=== PATIENT | female | born 1990 | race Caucasian/White ===

== ENCOUNTER 2016-10-18 10:35 | Emergency (ER) | payer BC ==
[~2016-10-18] VITALS: Ht 170.2 cm; Wt 67.9 kg
[2016-10-18 11:21] LABS: HEMATOCRIT 43.3 % (36.0-46.0); MCHC 33.9 G/DL (30.0-36.0); MCV 88.4 FL (83-99); MEAN PLAT.VOLUME 9.9 uM^3 (9.5-12.4); PLATELET COUNT 181 K/uL (156-360); RBC DIS.WIDTH-CV 11.8 % (11.8-14.6); RBC DIS.WIDTH-SD 37.9 % (39-53); WHITE BLOOD COUNT 18.1 K/uL (4.1-10.2)
[2016-10-18] MEDS ORDERED: SOLIQUA 100 UNIT3 ML SC (11:26)
[2016-10-18] MEDS ORDERED: HUMALOG100 UNIT/1 SC (11:27)
[2016-10-18 11:29] LABS: CHLORIDE 98 mEq/L (99-109); POTASSIUM 3.7 mEq/L (3.7-5.4); SODIUM 134 mEq/L (136-147)
[2016-10-18 11:31] LABS: GLUCOSE 224 mg/dL (70-99)
[2016-10-18 11:32] LABS: ANION GAP 10 MEQ/L (2-14)
[2016-10-18 11:36] LABS: UREA NITROGEN (BUN) 8 mg/dL (9-23)
[2016-10-18 11:38] LABS: GFR ESTIMATE (CALCULATED) > 59 mL/min/
[2016-10-18 11:46] LABS: QUANTITATIVE HCG < 4.0 MIU/ML
[2016-10-18 11:46] LABS: ADD MIUA? YES; BILIRUBIN NEGATIVE; BLOOD SMALL; COLOR AMBER ((YELLOW)); GLUCOSE (STRIP) >=500; KETONES 20; LEUKOCYTES LARGE; NITRITE POSITIVE; PROTEIN (STRIP) 100; UROBILINOGEN 0.2 MG/DL (0.2-1.0)
[2016-10-18 12:07] LABS: EPITHELIAL CELLS 1+ /HPF; RED BLOOD CELLS 0-5 /HPF (0-5); WHITE BLOOD CELLS TNTC /HPF (0-5)
[2016-10-18 12:09] LABS: BACTERIA 2+ /HPF; CASTS NONE SEEN /LPF; CRYSTALS NONE SEEN; MUCUS NONE SEEN /LPF; UCUL ADDED? YES
[2016-10-18] MEDS ORDERED: ULTRAM50 MG PO (13:25)
[2016-10-18] MEDS ORDERED: ZOFRAN ODT4 MG PO (13:25)
[2016-10-18] MEDS ORDERED: MOTRIN600 MG PO (13:25)
[2016-10-18] MEDS ORDERED: KEFLEX500 MG PO (13:25)
[2016-10-18 13:54] VITALS: BP 110/54
== END 2016-10-18 13:57 | disposition home or self-care (01) ==
LOC: EME 10:35
DX: N39.0 Urinary tract infection, site not specified (principal); R11.2 Nausea with vomiting, unspecified; K59.00 Constipation, unspecified; R51 Headache; E11.9 Type 2 diabetes mellitus without complications; Z79.4 Long term (current) use of insulin; F17.200 Nicotine dependence, unspecified, uncomplicated
CPT/HCPCS: 74176; 80048; 81003; 84702; 85027; 87077; 87086; 87186; 99281; 99284; J1885; J2405; J7030